=== PATIENT | male | born 1975 | race Native Hawaiian/Other Pacific Islander ===

== ENCOUNTER 2016-07-02 00:18 | Emergency (ER) | payer MEDICAID, OTHER ==
[~2016-07-02] VITALS: Ht 185.4 cm; Wt 235.9 kg
[2016-07-02] MEDS ORDERED: cloNIDine HCL 0.1 MG TAB PO ONE (00:45)
[2016-07-02 01:06] LABS: Basophils # (auto) 0.4 uL; Basophils % (auto) 2.5 % (0.0-2.0); DEFINITIVE VIEW TRANSMISSION; Eosinophils # (auto) 0 uL; Eosinophils % (auto) 0.1 % (0.0-7.0); Hematocrit 42.8 % (41.0-53.0); Hemoglobin 13.6 g/dL (13.5-17.5); Lymphocytes # (auto) 1.2 uL; Lymphocytes % (auto) 8.2 % (10.0-50.0); Mean Corpuscular Hemoglobin 27.1 pg (28.0-32.0); Mean Corpuscular Hgb Conc. 31.8 g/dL (32.0-36.0); Mean Corpuscular Volume 85.4 fL (80.0-100.0); Mean Platelet Volume 8.8 fL (7.4-10.4); Monocytes # (auto) 0.2 uL; Monocytes % (auto) 1.2 % (0.0-12.0); Neutrophils # (auto) 12.3 uL; Platelet Count (auto) 368 10^3/uL (140-450); Red Cell Distribution Width 13.1 % (11.6-16.0); SUSPECT VIEW TRANSMISSION; White Blood Cell 14.1 10^3/uL (4.4-10.8)
[2016-07-02 01:16] LABS: Albumin 3.8 g/dL (3.4-5.0); BUN/Creatinine Ratio 12.1; Calcium 8.6 mg/dL (8.5-10.1)
[2016-07-02 01:19] LABS: Bilirubin, Total 0.3 mg/dL (0.2-1.0); Total Protein 7.6 g/dL (6.4-8.2)
[2016-07-02 01:29] LABS: B-Type Natriuretic Peptide 13.19 pg/mL (0-100)
[2016-07-02 01:36] LABS: Temperature: 22.7 C (20.0-25.0)
[2016-07-02] MEDS ORDERED: ONDANSETRON HCL 4 MG/2 ML VIAL IV ONE (03:30)
[2016-07-02] MEDS ORDERED: HYDROmorphone HCL 2 MG/ML VL IV ONE ×2 (03:30→06:30)
[2016-07-02] MEDS ORDERED: metroNIDAZOLE 500 MG TAB PO ONE (06:30)
[2016-07-02] MEDS ORDERED: SODIUM CHLORIDE 0.9% 1,000 ML IV ONE (06:30)
[2016-07-02] MEDS ORDERED: cefTRIAXone 1GM/50ML D5W 50 ML IV ONE (06:30)
[2016-07-02 07:18] VITALS: BP 131/69
== END 2016-07-02 08:11 | disposition home or self-care (01) ==
LOC: EDBD 00:18 → ER 00:24
DX: K52.9 Noninfective gastroenteritis and colitis, unspecified (principal); K21.9 Gastro-esophageal reflux disease without esophagitis; I10 Essential (primary) hypertension; G40.909 Epilepsy, unspecified, not intractable, without status epilepticus; Z90.49 Acquired absence of other specified parts of digestive tract; Z88.1 Allergy status to other antibiotic agents
CPT/HCPCS: 36415; 80053; 83690; 83880; 84484; 85025; 93005; 96365; 96375; 96376; 99285; J0696; J1170; J2405; J7030

== ENCOUNTER 2016-07-03 09:15 | Inpatient (IN) | payer MEDICAID ==
[~2016-07-03] VITALS: Ht 185.4 cm; Wt 236.0 kg
[2016-07-03 10:42] LABS: Basophils # (auto) 0 uL; Basophils % (auto) 0.2 % (0.0-2.0); Eosinophils # (auto) 0 uL; Hematocrit 44.8 % (41.0-53.0); Hemoglobin 14.6 g/dL (13.5-17.5); Lymphocytes # (auto) 1.8 uL; Lymphocytes % (auto) 13.3 % (10.0-50.0); Mean Corpuscular Hemoglobin 27.5 pg (28.0-32.0); Mean Corpuscular Hgb Conc. 32.7 g/dL (32.0-36.0); Mean Corpuscular Volume 84.3 fL (80.0-100.0); Mean Platelet Volume 8.4 fL (7.4-10.4); Monocytes # (auto) 0.4 uL; Monocytes % (auto) 2.9 % (0.0-12.0); Neutrophils % (auto) 83.6 % (37.0-80.0); Platelet Count (auto) 377 10^3/uL (140-450); Red Cell Distribution Width 14.1 % (11.6-16.0); White Blood Cell 13.2 10^3/uL (4.4-10.8)
[2016-07-03 11:08] LABS: Albumin 4.3 g/dL (3.4-5.0); BUN/Creatinine Ratio 10.9; Bilirubin, Total 0.5 mg/dL (0.2-1.0); Calcium 9.1 mg/dL (8.5-10.1); Potassium 3.7 mmol/L (3.5-5.1); Total Protein 8.4 g/dL (6.4-8.2)
[2016-07-03] MEDS ORDERED: PANTOPRAZOLE SODIUM 40 MG/10 ML VIAL IV ONE (11:45)
[2016-07-03] MEDS ORDERED: ONDANSETRON HCL 4 MG/2 ML VIAL IV ONE (11:45)
[2016-07-03] MEDS ORDERED: SODIUM CHLORIDE 0.9% 500 ML IVB ONE (11:45)
[2016-07-03] MEDS ORDERED: metroNIDAZOLE 500MG/100ML 100 ML IV ONE (11:45)
[2016-07-03] MEDS ORDERED: HYDROmorphone HCL 2 MG/ML VL IV ONE (11:45)
[2016-07-03] MEDS ORDERED: LORazepam 0.5 MG TAB PO PRN (12:15)
[2016-07-03] MEDS ORDERED: ACETAMINOPHEN 500 MG TAB PO PRN (12:15)
[2016-07-03] MEDS ORDERED: cefTRIAXone 1GM/50ML D5W 50 ML IV ONE (12:15)
[2016-07-03] MEDS ORDERED: TEMAZEPAM 15 MG CAP PO PRN (12:15)
[2016-07-03] MEDS ORDERED: ENOXAPARIN SOD 40 MG/0.4 ML SYRINGE SC ONE (12:45)
[2016-07-03] MEDS: SODIUM CHLORIDE 0.9% 1,000 ML IV SCH ×2 (13:38→22:30)
[2016-07-03] MEDS: PROMETHAZINE HCL 25 MG/ML 1ML IV PRN ×4 (13:38→23:10)
[2016-07-03 13:47] LABS: Amylase 54 U/L (25-115)
[2016-07-03] MEDS: MORPHINE SULF INJ 2 MG/ML SYRINGE 1ML IV PRN ×3 (15:30→23:08)
[2016-07-03] MEDS: metroNIDAZOLE 500MG/100ML 100 ML IV SCH ×2 (19:28→23:13)
[2016-07-03] MEDS: HYDROcodone-ACET 5/325MG TAB PO PRN (20:14)
[2016-07-03 22:00] VITALS: BP 135/85
[2016-07-03] MEDS: FAMOTIDINE 20 MG TAB PO SCH (22:30)
[2016-07-04] MEDS ORDERED: FLUT50SP13 IN (03:11)
[2016-07-04] MEDS ORDERED: LISI40TA PO (03:11)
[2016-07-04] MEDS ORDERED: AMLO10TA2 PO (03:11)
[2016-07-04] MEDS ORDERED: DIC10C PO (03:11)
[2016-07-04] MEDS ORDERED: ZOLP10TA6 PO (03:11)
[2016-07-04] MEDS: MORPHINE SULF INJ 2 MG/ML SYRINGE 1ML IV PRN ×5 (03:38→20:48)
[2016-07-04] MEDS: PROMETHAZINE HCL 25 MG/ML 1ML IV PRN ×5 (03:38→20:48)
[2016-07-04] MEDS ORDERED: SUCR1TAB PO (03:49)
[2016-07-04] MEDS ORDERED: OMEP20TA44 PO (03:49)
[2016-07-04] MEDS: metroNIDAZOLE 500MG/100ML 100 ML IV SCH (05:35)
[2016-07-04 05:58] VITALS: BP 127/83
[2016-07-04 06:00] VITALS: BP 144/78
[2016-07-04 06:19] LABS: Basophils # (auto) 0.1 uL; Basophils % (auto) 0.6 % (0.0-2.0); Eosinophils # (auto) 0 uL; Eosinophils % (auto) 0.3 % (0.0-7.0); Hematocrit 38.3 % (41.0-53.0); Hemoglobin 12.6 g/dL (13.5-17.5); Lymphocytes # (auto) 2.6 uL; Lymphocytes % (auto) 21.4 % (10.0-50.0); Mean Corpuscular Hemoglobin 27.7 pg (28.0-32.0); Mean Corpuscular Hgb Conc. 32.8 g/dL (32.0-36.0); Mean Corpuscular Volume 84.4 fL (80.0-100.0); Mean Platelet Volume 8.5 fL (7.4-10.4); Monocytes % (auto) 8.5 % (0.0-12.0); Neutrophils # (auto) 8.4 uL; Neutrophils % (auto) 69.2 % (37.0-80.0); Platelet Count (auto) 326 10^3/uL (140-450); White Blood Cell 12.1 10^3/uL (4.4-10.8)
[2016-07-04 06:50] LABS: Cholesterol 162 mg/dL (<200); HDL Cholesterol 32 mg/dL (40-59); LDL Cholesterol 83 mg/dL (<100); Triglycerides 247 mg/dL (<150)
[2016-07-04] MEDS: SODIUM CHLORIDE 0.9% 1,000 ML IV SCH (08:14)
[2016-07-04 09:00] VITALS: BP 138/85
[2016-07-04] MEDS ORDERED: cefTRIAXone 1GM/50ML D5W 50 ML IV SCH (09:00)
[2016-07-04] MEDS: ENOXAPARIN SOD 40 MG/0.4 ML SYRINGE SC SCH (09:33)
[2016-07-04] MEDS: FAMOTIDINE 20 MG TAB PO SCH ×2 (09:33→21:28)
[2016-07-04] MEDS: HYDROcodone-ACET 5/325MG TAB PO PRN ×2 (09:42→19:05)
[2016-07-04] MEDS ORDERED: amLODIPine BESYLATE 5 MG TAB PO ONE (11:45)
[2016-07-04] MEDS ORDERED: LISINOPRIL 20 MG TAB PO ONE (11:45)
[2016-07-04 13:00] VITALS: BP 130/83
[2016-07-04] MEDS: LOPERAMIDE HCL 2 MG CAP PO PRN ×2 (16:37→23:26)
[2016-07-04 17:00] VITALS: BP 146/93
[2016-07-04 22:00] VITALS: BP 135/89
[2016-07-05] MEDS: MORPHINE SULF INJ 2 MG/ML SYRINGE 1ML IV PRN ×3 (00:35→09:17)
[2016-07-05] MEDS: PROMETHAZINE HCL 25 MG/ML 1ML IV PRN ×3 (00:35→09:17)
[2016-07-05 05:03] VITALS: BP 151/83
[2016-07-05 09:00] VITALS: BP 134/89
[2016-07-05 09:13] LABS: Basophils # (auto) 0.1 uL; Basophils % (auto) 0.9 % (0.0-2.0); Eosinophils # (auto) 0.3 uL; Eosinophils % (auto) 2.1 % (0.0-7.0); Hematocrit 40.7 % (41.0-53.0); Hemoglobin 13.4 g/dL (13.5-17.5); Lymphocytes # (auto) 3.7 uL; Lymphocytes % (auto) 25.8 % (10.0-50.0); Mean Corpuscular Hemoglobin 28.2 pg (28.0-32.0); Mean Corpuscular Hgb Conc. 32.9 g/dL (32.0-36.0); Mean Corpuscular Volume 85.8 fL (80.0-100.0); Mean Platelet Volume 8.5 fL (7.4-10.4); Monocytes % (auto) 6.8 % (0.0-12.0); Neutrophils # (auto) 9.3 uL; Neutrophils % (auto) 64.4 % (37.0-80.0); Platelet Count (auto) 321 10^3/uL (140-450); White Blood Cell 14.4 10^3/uL (4.4-10.8)
[2016-07-05 09:17] LABS: Albumin 3.7 g/dL (3.4-5.0); BUN/Creatinine Ratio 9.1; Bilirubin, Total 0.5 mg/dL (0.2-1.0); Calcium 8.7 mg/dL (8.5-10.1); Potassium 3.2 mmol/L (3.5-5.1); Total Protein 6.8 g/dL (6.4-8.2)
[2016-07-05] MEDS: ENOXAPARIN SOD 40 MG/0.4 ML SYRINGE SC SCH (09:18)
[2016-07-05] MEDS: FAMOTIDINE 20 MG TAB PO SCH (09:19)
[2016-07-05] MEDS ORDERED: LISINOPRIL 20 MG TAB PO SCH (10:00)
[2016-07-05] MEDS ORDERED: amLODIPine BESYLATE 5 MG TAB PO SCH (10:00)
[2016-07-05] MEDS ORDERED: METR500T PO ×2 (12:00)
[2016-07-05] MEDS ORDERED: CEPH-37 PO ×2 (12:00)
[2016-07-05] MEDS ORDERED: OMEP20CA5 PO ×2 (12:00)
[2016-07-05 12:25] VITALS: BP 134/89
[2016-07-05 13:05] VITALS: BP 134/89
== END 2016-07-05 13:06 | disposition home or self-care (01) | DRG 249 ==
LOC: ER 09:17 → OVERFLOW 09:18 → UNDOADMIN 09:18 → CENTRAL 20:26
PROVIDERS: ADMIT Internal Medicine; ATTEND Hospitalist
DX: K52.9 Noninfective gastroenteritis and colitis, unspecified (principal); I11.9 Hypertensive heart disease without heart failure; Z68.44 Body mass index [BMI] 60.0-69.9, adult; K21.9 Gastro-esophageal reflux disease without esophagitis; K57.92 Diverticulitis of intestine, part unspecified, without perforation or abscess without bleeding; E66.01 Morbid (severe) obesity due to excess calories; M54.30 Sciatica, unspecified side; G43.909 Migraine, unspecified, not intractable, without status migrainosus; Z88.1 Allergy status to other antibiotic agents; Z98.890 Other specified postprocedural states; Z82.3 Family history of stroke; Z90.49 Acquired absence of other specified parts of digestive tract; Z83.3 Family history of diabetes mellitus
CPT/HCPCS: 36415; 80053; 80061; 82150; 82378; 83690; 84484; 85025; 85048; 86141; 87086; 87493; 93005; 94761; 96365; 96367; 96372; 96375; C9113; J0696; J2405; J3490

== ENCOUNTER 2016-08-09 17:39 | Emergency (ER) | payer MEDICAID ==
[~2016-08-09] VITALS: Ht 185.4 cm; Wt 238.1 kg
[~2016-08-09 17:39] MED LIST: AMLO10TA2 PO; CEPH-37 PO; DIC10C PO; FLUT50SP13 IN; LISI40TA PO; METR500T PO; OMEP20CA5 PO; OMEP20TA44 PO; SUCR1TAB PO; ZOLP10TA6 PO
[2016-08-09 18:29] LABS: Basophils # (auto) 0 uL; Eosinophils # (auto) 0 uL; Eosinophils % (auto) 0.1 % (0.0-7.0); Hematocrit 42.5 % (41.0-53.0); Hemoglobin 13.5 g/dL (13.5-17.5); Lymphocytes # (auto) 1.4 uL; Lymphocytes % (auto) 9.1 % (10.0-50.0); Mean Corpuscular Hemoglobin 27.4 pg (28.0-32.0); Mean Corpuscular Hgb Conc. 31.7 g/dL (32.0-36.0); Mean Corpuscular Volume 86.4 fL (80.0-100.0); Mean Platelet Volume 8.8 fL (7.4-10.4); Monocytes # (auto) 0.1 uL; Monocytes % (auto) 0.5 % (0.0-12.0); Neutrophils # (auto) 13.5 uL; Neutrophils % (auto) 90.3 % (37.0-80.0); Platelet Count (auto) 413 10^3/uL (140-450); Red Cell Distribution Width 14.1 % (11.6-16.0)
[2016-08-09 19:04] LABS: BUN/Creatinine Ratio 13.6; Bilirubin, Total 0.4 mg/dL (0.2-1.0); Potassium 4.1 mmol/L (3.5-5.1); Total Protein 7.9 g/dL (6.4-8.2)
[2016-08-09] MEDS ORDERED: SODIUM CHLORIDE 0.9% 500 ML IV STA (19:56)
[2016-08-09] MEDS ORDERED: SODIUM CHLORIDE 0.9% 1,000 ML IV ONE (20:00)
[2016-08-09] MEDS ORDERED: HYDROmorphone HCL 2 MG/ML VL IV ONE ×2 (20:00→22:00)
[2016-08-09] MEDS ORDERED: ONDANSETRON HCL 4 MG/2 ML VIAL IV ONE (20:00)
[2016-08-10] MEDS ORDERED: PROMETHAZINE HCL 25 MG/ML 1ML IV ONE
[2016-08-10] MEDS ORDERED: metroNIDAZOLE 500MG/100ML 100 ML IV ONE
[2016-08-10] MEDS ORDERED: cefTRIAXone 1GM/50ML D5W 50 ML IV ONE
[2016-08-10 02:15] VITALS: BP 125/81
[2016-08-11] MEDS ORDERED: HYDR50TA69 PO (05:24)
[2016-08-11] MEDS ORDERED: IBU100LQ PO (05:24)
[2016-08-11] MEDS ORDERED: PROM1SUP4 PO (05:24)
[2016-08-11] MEDS ORDERED: TRAM-297 PO (05:24)
[2016-08-11] MEDS ORDERED: BUTA50TA PO (05:24)
== END 2016-08-10 00:26 | disposition home or self-care (01) ==
LOC: ER 17:45
DX: K52.9 Noninfective gastroenteritis and colitis, unspecified (principal); D72.829 Elevated white blood cell count, unspecified; R07.9 Chest pain, unspecified; K21.9 Gastro-esophageal reflux disease without esophagitis; I10 Essential (primary) hypertension; F12.10 Cannabis abuse, uncomplicated; Z88.1 Allergy status to other antibiotic agents; Z79.899 Other long term (current) drug therapy
CPT/HCPCS: 36415; 71010; 74000; 80053; 83690; 84484; 85025; 93005; 96361; 96365; 96367; 96375; 96376; 99285; J0696; J1170; J2405; J2550; J3490; J7030

== ENCOUNTER 2016-08-10 15:51 | Inpatient (IN) | payer MEDICAID ==
[~2016-08-10] VITALS: Ht 185.4 cm; Wt 235.0 kg
[2016-08-10 16:41] LABS: Basophils # (auto) 0.1 uL; Basophils % (auto) 0.5 % (0.0-2.0); Eosinophils # (auto) 0 uL; Eosinophils % (auto) 0.2 % (0.0-7.0); Hematocrit 42.2 % (41.0-53.0); Hemoglobin 13.4 g/dL (13.5-17.5); Lymphocytes # (auto) 2.2 uL; Lymphocytes % (auto) 14.8 % (10.0-50.0); Mean Corpuscular Hemoglobin 27.1 pg (28.0-32.0); Mean Corpuscular Hgb Conc. 31.8 g/dL (32.0-36.0); Mean Corpuscular Volume 85.3 fL (80.0-100.0); Mean Platelet Volume 8.6 fL (7.4-10.4); Monocytes # (auto) 0.7 uL; Neutrophils # (auto) 11.6 uL; Neutrophils % (auto) 79.5 % (37.0-80.0); Platelet Count (auto) 431 10^3/uL (140-450); White Blood Cell 14.6 10^3/uL (4.4-10.8)
[2016-08-10 16:55] LABS: Albumin 3.9 g/dL (3.4-5.0); BUN/Creatinine Ratio 11.3; Calcium 8.8 mg/dL (8.5-10.1); Magnesium 2.4 mg/dL (1.6-2.6); Potassium 3.4 mmol/L (3.5-5.1)
[2016-08-10 16:58] LABS: Bilirubin, Total 0.3 mg/dL (0.2-1.0); Total Protein 7.7 g/dL (6.4-8.2)
[2016-08-10] MEDS ORDERED: ONDANSETRON HCL 4 MG/2 ML VIAL IV ONE (20:30)
[2016-08-10] MEDS ORDERED: HYDROmorphone HCL 2 MG/ML VL IV ONE ×2 (20:30→22:00)
[2016-08-10] MEDS ORDERED: PROMETHAZINE HCL 25 MG/ML 1ML IV ONE (22:00)
[2016-08-10] MEDS ORDERED: diphenhdrAMINE HCL 50 MG/1 ML VL IV ONE (22:00)
[2016-08-11] VITALS (8 sets, daily range): BP systolic 102–161; BP diastolic 64–85
[2016-08-11] MEDS ORDERED: PANTOPRAZOLE SODIUM 40 MG/10 ML VIAL IV ONE (01:45)
[2016-08-11] MEDS ORDERED: POTASSIUM CHL 20 Meq TABLET PO ONE (01:45)
[2016-08-11] MEDS ORDERED: ACETAMINOPHEN 325 MG TAB PO PRN (01:45)
[2016-08-11] MEDS: MORPHINE SULF INJ 2 MG/ML SYRINGE 1ML IV PRN ×5 (03:08→21:50)
[2016-08-11] MEDS ORDERED: BUTA50TA PO ×2 (05:24)
[2016-08-11] MEDS ORDERED: HYDR50TA69 PO ×2 (05:24)
[2016-08-11] MEDS ORDERED: IBU100LQ PO ×2 (05:24)
[2016-08-11] MEDS ORDERED: PROM1SUP4 PO ×2 (05:24)
[2016-08-11] MEDS ORDERED: TRAM-297 PO ×2 (05:24)
[2016-08-11] MEDS ORDERED: SUCRALFATE 1 GM TAB PO SCH (06:00)
[2016-08-11] MEDS: ONDANSETRON HCL 4 MG/2 ML VIAL IV PRN ×2 (07:38→11:40)
[2016-08-11] MEDS: amLODIPine BESYLATE 5 MG TAB PO SCH (09:27)
[2016-08-11] MEDS: HYDROcodone-ACET 5/325MG TAB PO PRN ×2 (09:33→19:07)
[2016-08-11] MEDS ORDERED: LISINOPRIL 20 MG TAB PO SCH (10:00)
[2016-08-11] MEDS ORDERED: ENOXAPARIN SOD 40 MG/0.4 ML SYRINGE SC SCH (10:00)
[2016-08-11] MEDS ORDERED: PANTOPRAZOLE SODIUM 40 MG/10 ML VIAL IV SCH (10:00)
[2016-08-11] MEDS ORDERED: INFLUENZA QUAD 2016-2017 0.5 ML SYRG IM ONE (10:00)
[2016-08-11] MEDS ORDERED: MORPHINE SULF INJ 2 MG/ML SYRINGE 1ML IV ONE ×2 (10:15)
[2016-08-11] MEDS ORDERED: cefTRIAXone 1GM/50ML D5W 50 ML IV ONE (10:15)
[2016-08-11] MEDS: metroNIDAZOLE 500MG/100ML 100 ML IV SCH ×2 (11:40→17:51)
[2016-08-11] MEDS: PROMETHAZINE HCL 25 MG/ML 1ML IV PRN ×2 (15:46→21:50)
[2016-08-11] MEDS: DIPHENOXYLATE W/ATROPINE 2.5 MG TAB PO PRN (19:07)
[2016-08-11] MEDS ORDERED: PANTOPRAZOLE 40 MG TAB PO SCH (22:00)
[2016-08-12] MEDS: metroNIDAZOLE 500MG/100ML 100 ML IV SCH ×5 (01:10→23:50)
[2016-08-12] MEDS: MORPHINE SULFATE 4 MG/ML SYRG IV PRN ×2 (01:19→06:10)
[2016-08-12 05:00] VITALS: BP 156/96
[2016-08-12] MEDS: PROMETHAZINE HCL 25 MG/ML 1ML IV PRN ×2 (06:11→12:22)
[2016-08-12 06:37] LABS: Basophils # (auto) 0 uL; Basophils % (auto) 0.2 % (0.0-2.0); Eosinophils # (auto) 0.1 uL; Eosinophils % (auto) 0.4 % (0.0-7.0); Hematocrit 40.3 % (41.0-53.0); Hemoglobin 12.9 g/dL (13.5-17.5); Lymphocytes # (auto) 2.3 uL; Lymphocytes % (auto) 18.5 % (10.0-50.0); Mean Corpuscular Hemoglobin 27.6 pg (28.0-32.0); Mean Corpuscular Volume 86.2 fL (80.0-100.0); Mean Platelet Volume 8.7 fL (7.4-10.4); Monocytes # (auto) 0.5 uL; Monocytes % (auto) 4.2 % (0.0-12.0); Neutrophils # (auto) 9.7 uL; Neutrophils % (auto) 76.7 % (37.0-80.0); Platelet Count (auto) 335 10^3/uL (140-450); Red Cell Distribution Width 13.6 % (11.6-16.0); White Blood Cell 12.6 10^3/uL (4.4-10.8)
[2016-08-12 07:16] LABS: Albumin 3.8 g/dL (3.4-5.0); BUN/Creatinine Ratio 8.6; Bilirubin, Total 0.4 mg/dL (0.2-1.0); Calcium 8.7 mg/dL (8.5-10.1); Potassium 3.4 mmol/L (3.5-5.1); Total Protein 7.4 g/dL (6.4-8.2)
[2016-08-12 08:00] VITALS: BP 154/94
[2016-08-12] MEDS: SOD CHL 0.9%/ KCL 20MEQ 1,000 ML IV SCH ×2 (09:45→21:46)
[2016-08-12] MEDS: cefTRIAXone 1GM/50ML D5W 50 ML IV SCH (10:15)
[2016-08-12] MEDS: PANTOPRAZOLE SODIUM 40 MG/10 ML VIAL IV SCH (10:15)
[2016-08-12] MEDS: HYDROmorphone HCL 2 MG/ML VL IV PRN ×4 (10:16→23:43)
[2016-08-12] MEDS: LISINOPRIL 20 MG TAB PO SCH (10:17)
[2016-08-12] MEDS: amLODIPine BESYLATE 5 MG TAB PO SCH (10:17)
[2016-08-12 10:40] LABS: Amylase 28 U/L (25-115)
[2016-08-12 12:00] VITALS: BP 122/87
[2016-08-12] MEDS: DIPHENOXYLATE W/ATROPINE 2.5 MG TAB PO PRN (12:21)
[2016-08-12 17:06] VITALS: BP 153/93
[2016-08-12 20:00] VITALS: BP 137/80
[2016-08-12 21:49] VITALS: BP 137/68
[2016-08-12] MEDS: ZOLPIDEM TARTRATE 5 MG TAB PO PRN (23:44)
[2016-08-13] VITALS (7 sets, daily range): BP systolic 137–164; BP diastolic 79–92
[2016-08-13] MEDS: HYDROmorphone HCL 2 MG/ML VL IV PRN ×5 (04:39→20:41)
[2016-08-13] MEDS: SOD CHL 0.9%/ KCL 20MEQ 1,000 ML IV SCH ×2 (05:15→16:44)
[2016-08-13] MEDS: metroNIDAZOLE 500MG/100ML 100 ML IV SCH ×3 (05:20→18:42)
[2016-08-13] MEDS: PANTOPRAZOLE SODIUM 40 MG/10 ML VIAL IV SCH (08:44)
[2016-08-13] MEDS: amLODIPine BESYLATE 5 MG TAB PO SCH (08:49)
[2016-08-13] MEDS: LISINOPRIL 20 MG TAB PO SCH (08:49)
[2016-08-13] MEDS: cefTRIAXone 1GM/50ML D5W 50 ML IV SCH (08:50)
[2016-08-13] MEDS ORDERED: POTASSIUM CHLORIDE 40 MEQ, LIDOCAINE 1% (LOCAL ANESTH.) 4 ML in SODIUM CHL 0.9% 250 ML IV ONE (10:00)
[2016-08-13] MEDS ORDERED: SUMAtriptan SUCCINATE 25 MG TAB PO ONE (10:00)
[2016-08-13] MEDS: PROMETHAZINE HCL 25 MG/ML 1ML IV PRN ×2 (10:06→16:43)
[2016-08-13 11:40] LABS: INR 1.03 (0.9-1.15); Partial Thromboplastin Time 21.6 sec (22.64-33.71); Prothrombin Time 10.6 sec (9.37-12.3)
[2016-08-13 11:55] LABS: Calcium 8.2 mg/dL (8.5-10.1); Potassium 3.3 mmol/L (3.5-5.1)
[2016-08-13 12:04] LABS: Basophils # (auto) 0.1 uL; Basophils % (auto) 0.6 % (0.0-2.0); Eosinophils # (auto) 0.2 uL; Eosinophils % (auto) 2.1 % (0.0-7.0); Hematocrit 40.4 % (41.0-53.0); Hemoglobin 12.7 g/dL (13.5-17.5); Lymphocytes % (auto) 17.5 % (10.0-50.0); Mean Corpuscular Hemoglobin 27.1 pg (28.0-32.0); Mean Corpuscular Hgb Conc. 31.5 g/dL (32.0-36.0); Mean Platelet Volume 9.1 fL (7.4-10.4); Monocytes # (auto) 0.7 uL; Monocytes % (auto) 6.3 % (0.0-12.0); Neutrophils # (auto) 8.4 uL; Neutrophils % (auto) 73.5 % (37.0-80.0); Platelet Count (auto) 347 10^3/uL (140-450); Red Cell Distribution Width 13.8 % (11.6-16.0); White Blood Cell 11.4 10^3/uL (4.4-10.8)
[2016-08-14] MEDS: PROMETHAZINE HCL 25 MG/ML 1ML IV PRN ×3 (00:38→10:34)
[2016-08-14] MEDS: metroNIDAZOLE 500MG/100ML 100 ML IV SCH ×2 (00:38→06:39)
[2016-08-14] MEDS: HYDROmorphone HCL 2 MG/ML VL IV PRN ×5 (00:39→13:22)
[2016-08-14] MEDS: ZOLPIDEM TARTRATE 5 MG TAB PO PRN (00:39)
[2016-08-14] MEDS: SOD CHL 0.9%/ KCL 20MEQ 1,000 ML IV SCH (01:45)
[2016-08-14 04:30] VITALS: BP 141/94
[2016-08-14 05:12] LABS: Basophils # (auto) 0.1 uL; Basophils % (auto) 0.6 % (0.0-2.0); Eosinophils # (auto) 0.4 uL; Eosinophils % (auto) 3.2 % (0.0-7.0); Hemoglobin 12.8 g/dL (13.5-17.5); Lymphocytes # (auto) 2.4 uL; Lymphocytes % (auto) 19.9 % (10.0-50.0); Mean Corpuscular Hgb Conc. 31.2 g/dL (32.0-36.0); Mean Corpuscular Volume 86.5 fL (80.0-100.0); Mean Platelet Volume 8.9 fL (7.4-10.4); Monocytes # (auto) 0.7 uL; Monocytes % (auto) 6.2 % (0.0-12.0); Neutrophils # (auto) 8.4 uL; Neutrophils % (auto) 70.1 % (37.0-80.0); Platelet Count (auto) 333 10^3/uL (140-450); Red Cell Distribution Width 13.6 % (11.6-16.0)
[2016-08-14 05:42] LABS: Calcium 8.3 mg/dL (8.5-10.1); Potassium 3.2 mmol/L (3.5-5.1)
[2016-08-14 05:44] LABS: BUN/Creatinine Ratio 7.2
[2016-08-14 09:05] VITALS: BP 146/79
[2016-08-14] MEDS: cefTRIAXone 1GM/50ML D5W 50 ML IV SCH (11:16)
[2016-08-14] MEDS: PANTOPRAZOLE SODIUM 40 MG/10 ML VIAL IV SCH (11:18)
[2016-08-14] MEDS: amLODIPine BESYLATE 5 MG TAB PO SCH (11:19)
[2016-08-14] MEDS: LISINOPRIL 20 MG TAB PO SCH (11:20)
[2016-08-15] MEDS ORDERED: NITROGLYCERIN 0.4 MG SL TAB SL PRN (23:00)
[2016-08-15] MEDS ORDERED: MORPHINE SULF INJ 2 MG/ML SYRINGE 1ML IV PRN (23:00)
[2016-08-16 00:02] LABS: Basophils # (auto) 0.1 uL; Basophils % (auto) 0.7 % (0.0-2.0); Eosinophils # (auto) 0.3 uL; Eosinophils % (auto) 2.9 % (0.0-7.0); Hematocrit 40.4 % (41.0-53.0); Hemoglobin 12.6 g/dL (13.5-17.5); Lymphocytes # (auto) 2.3 uL; Lymphocytes % (auto) 20.1 % (10.0-50.0); Mean Corpuscular Hemoglobin 27.1 pg (28.0-32.0); Mean Corpuscular Hgb Conc. 31.2 g/dL (32.0-36.0); Mean Corpuscular Volume 86.9 fL (80.0-100.0); Mean Platelet Volume 8.9 fL (7.4-10.4); Monocytes # (auto) 0.6 uL; Monocytes % (auto) 5.2 % (0.0-12.0); Neutrophils # (auto) 8.2 uL; Neutrophils % (auto) 71.1 % (37.0-80.0); Platelet Count (auto) 332 10^3/uL (140-450); White Blood Cell 11.5 10^3/uL (4.4-10.8)
[2016-08-16 00:17] LABS: Albumin 3.1 g/dL (3.4-5.0); Anion Gap 6 (5-15); Aspartate Aminotransferase 36 U/L (15-37); BUN/Creatinine Ratio 6.3; Blood Urea Nitrogen 6 mg/dL (7-18); Calcium 8.3 mg/dL (8.5-10.1); Carbon Dioxide 27 mmol/L (21-32); Chloride 106 mmol/L (98-107); GFR African American 114 mL/min; GFR Non-African American 94 mL/min; Glucose 106 mg/dL (74-106); Potassium 3.8 mmol/L (3.5-5.1); Sodium 139 mmol/L (136-145)
[2016-08-16 00:22] LABS: Alkaline Phosphatase 83 U/L (45-117); Bilirubin, Total 0.4 mg/dL (0.2-1.0); Total Protein 6.8 g/dL (6.4-8.2)
== END 2016-08-14 14:16 | disposition short-term general hospital (02) | DRG 720 ==
LOC: ER 15:55 → OVERFLOW 15:56 → CENTRAL 08-11 03:26 → TELE-CENTR 08-11 16:25
PROVIDERS: ADMIT Nurse Practitioner; ATTEND Internal Medicine
DX: A41.9 Sepsis, unspecified organism (principal); K57.92 Diverticulitis of intestine, part unspecified, without perforation or abscess without bleeding; I10 Essential (primary) hypertension; E66.01 Morbid (severe) obesity due to excess calories; K52.9 Noninfective gastroenteritis and colitis, unspecified; E87.6 Hypokalemia; F12.90 Cannabis use, unspecified, uncomplicated; K21.9 Gastro-esophageal reflux disease without esophagitis; Z82.3 Family history of stroke; Z82.49 Family history of ischemic heart disease and other diseases of the circulatory system; Z83.3 Family history of diabetes mellitus; Z90.49 Acquired absence of other specified parts of digestive tract; Z68.44 Body mass index [BMI] 60.0-69.9, adult; Z88.1 Allergy status to other antibiotic agents; Z83.2 Family history of diseases of the blood and blood-forming organs and certain disorders involving the immune mechanism
CPT/HCPCS: 36415; 72040; 73020; 73120; 80048; 80053; 82150; 83690; 83735; 84484; 85025; 85610; 85730; 87493; 93005; 96374; 96375; 96376; C9113; J0696; J2001; J2405; J3490

== ENCOUNTER 2016-08-15 20:40 | Inpatient (IN) | payer MEDICAID ==
[~2016-08-15] VITALS: Ht 185.4 cm; Wt 230.3 kg
[~2016-08-15 20:40] MED LIST changes: +BUTA50TA PO; +HYDR50TA69 PO; +IBU100LQ PO; +PROM1SUP4 PO; +TRAM-297 PO
[2016-08-15 22:58] VITALS: BP 155/93
[2016-08-15] MEDS ORDERED: NITROGLYCERIN 0.4 MG SL TAB SL PRN (23:30)
[2016-08-16] MEDS: HYDROmorphone HCL 2 MG/ML VL IV PRN ×5 (01:20→20:49)
[2016-08-16 05:25] VITALS: BP 132/88
[2016-08-16 08:00] VITALS: BP 132/88
[2016-08-16] MEDS: cefTRIAXone 1GM/50ML D5W 50 ML IV SCH (08:38)
[2016-08-16 09:00] VITALS: BP 152/85
[2016-08-16] MEDS: LISINOPRIL 20 MG TAB PO SCH (10:52)
[2016-08-16] MEDS: amLODIPine BESYLATE 5 MG TAB PO SCH (10:52)
[2016-08-16] MEDS: PANTOPRAZOLE SODIUM 40 MG/10 ML VIAL IV SCH (10:53)
[2016-08-16] MEDS: ENOXAPARIN SOD 40 MG/0.4 ML SYRINGE SC SCH (10:53)
[2016-08-16] MEDS: PROMETHAZINE HCL 25 MG/ML 1ML IV PRN ×2 (12:20→20:49)
[2016-08-16] MEDS: MORPHINE SULF INJ 2 MG/ML SYRINGE 1ML IV PRN (12:30)
[2016-08-16] MEDS ORDERED: SUMAtriptan SUCCINATE 25 MG TAB PO PRN (16:45)
[2016-08-16 17:00] VITALS: BP 156/95
[2016-08-16 20:00] VITALS: BP 157/77
[2016-08-16 22:00] VITALS: BP 157/77
[2016-08-16] MEDS: ZOLPIDEM TARTRATE 5 MG TAB PO PRN (22:12)
[2016-08-17] VITALS (7 sets, daily range): BP systolic 148–160; BP diastolic 85–99
[2016-08-17] MEDS: MORPHINE SULF INJ 2 MG/ML SYRINGE 1ML IV PRN ×4 (00:18→21:59)
[2016-08-17] MEDS: HYDROmorphone HCL 2 MG/ML VL IV PRN ×4 (02:13→18:56)
[2016-08-17] MEDS: PROMETHAZINE HCL 25 MG/ML 1ML IV PRN ×3 (02:13→13:40)
[2016-08-17] MEDS: cefTRIAXone 1GM/50ML D5W 50 ML IV SCH (08:15)
[2016-08-17 08:53] LABS: Albumin 3.1 g/dL (3.4-5.0); BUN/Creatinine Ratio 7.4; Calcium 8.3 mg/dL (8.5-10.1); Potassium 3.5 mmol/L (3.5-5.1)
[2016-08-17 08:56] LABS: Bilirubin, Total 0.3 mg/dL (0.2-1.0); Total Protein 6.2 g/dL (6.4-8.2)
[2016-08-17] MEDS: LISINOPRIL 20 MG TAB PO SCH (09:50)
[2016-08-17] MEDS: ENOXAPARIN SOD 40 MG/0.4 ML SYRINGE SC SCH (09:51)
[2016-08-17] MEDS: amLODIPine BESYLATE 5 MG TAB PO SCH (09:51)
[2016-08-17] MEDS: PANTOPRAZOLE SODIUM 40 MG/10 ML VIAL IV SCH (09:51)
[2016-08-17] MEDS: ZOLPIDEM TARTRATE 5 MG TAB PO PRN (23:07)
[2016-08-18] MEDS: ONDANSETRON HCL 4 MG/2 ML VIAL IV PRN ×3 (00:46→20:17)
[2016-08-18] MEDS: HYDROmorphone HCL 2 MG/ML VL IV PRN ×3 (00:47→10:15)
[2016-08-18 05:00] VITALS: BP 159/93
[2016-08-18] MEDS: MORPHINE SULF INJ 2 MG/ML SYRINGE 1ML IV PRN (05:19)
[2016-08-18 09:00] VITALS: BP 141/88
[2016-08-18] MEDS: cefTRIAXone 1GM/50ML D5W 50 ML IV SCH (09:21)
[2016-08-18] MEDS: ENOXAPARIN SOD 40 MG/0.4 ML SYRINGE SC SCH (09:24)
[2016-08-18] MEDS: PANTOPRAZOLE SODIUM 40 MG/10 ML VIAL IV SCH (09:24)
[2016-08-18] MEDS: amLODIPine BESYLATE 5 MG TAB PO SCH (09:26)
[2016-08-18] MEDS: LISINOPRIL 20 MG TAB PO SCH (09:26)
[2016-08-18] MEDS ORDERED: LACTULOSE 20Gm/30ML SOLN PO ONE (11:00)
[2016-08-18] MEDS ORDERED: LACTULOSE 20Gm/30ML SOLN PO PRN (11:00)
[2016-08-18] MEDS ORDERED: PANTOPRAZOLE 40 MG TAB PO ONE (11:15)
[2016-08-18] MEDS ORDERED: LISINOPRIL 20 MG TAB PO ONE (11:15)
[2016-08-18 12:23] LABS: Basophils # (auto) 0.1 uL; Basophils % (auto) 0.6 % (0.0-2.0); Eosinophils # (auto) 0.6 uL; Eosinophils % (auto) 7.2 % (0.0-7.0); Lymphocytes # (auto) 2.4 uL; Lymphocytes % (auto) 28.8 % (10.0-50.0); Mean Corpuscular Hemoglobin 28.4 pg (28.0-32.0); Mean Corpuscular Hgb Conc. 33.3 g/dL (32.0-36.0); Mean Corpuscular Volume 85.4 fL (80.0-100.0); Mean Platelet Volume 9.1 fL (7.4-10.4); Monocytes # (auto) 0.7 uL; Monocytes % (auto) 7.7 % (0.0-12.0); Neutrophils # (auto) 4.7 uL; Neutrophils % (auto) 55.7 % (37.0-80.0); Platelet Count (auto) 295 10^3/uL (140-450); Red Cell Distribution Width 13.8 % (11.6-16.0); White Blood Cell 8.5 10^3/uL (4.4-10.8)
[2016-08-18 12:56] LABS: BUN/Creatinine Ratio 10.6; Calcium 8.4 mg/dL (8.5-10.1); Potassium 3.4 mmol/L (3.5-5.1)
[2016-08-18 13:00] VITALS: BP 158/103
[2016-08-18] MEDS: metroNIDAZOLE 500 MG TAB PO SCH ×2 (13:35→21:15)
[2016-08-18] MEDS: traMADol HCL 50 MG TAB PO PRN ×2 (13:35→21:16)
[2016-08-18] MEDS: HYDROcodone-ACET 10/325MG TAB PO PRN ×2 (16:00→20:17)
[2016-08-18 17:00] VITALS: BP 147/93
[2016-08-18] MEDS: ZOLPIDEM TARTRATE 5 MG TAB PO PRN (21:16)
[2016-08-18 22:00] VITALS: BP 136/79
[2016-08-19] MEDS: HYDROcodone-ACET 10/325MG TAB PO PRN ×3 (03:01→12:24)
[2016-08-19] MEDS: ONDANSETRON HCL 4 MG/2 ML VIAL IV PRN ×3 (03:11→12:59)
[2016-08-19 05:00] VITALS: BP 133/99
[2016-08-19] MEDS: traMADol HCL 50 MG TAB PO PRN (05:13)
[2016-08-19] MEDS: metroNIDAZOLE 500 MG TAB PO SCH (05:13)
[2016-08-19] MEDS: cefTRIAXone 1GM/50ML D5W 50 ML IV SCH (08:32)
[2016-08-19] MEDS: amLODIPine BESYLATE 5 MG TAB PO SCH (08:36)
[2016-08-19] MEDS ORDERED: PANT40T PO ×2 (08:45)
[2016-08-19] MEDS ORDERED: MET500T PO ×2 (08:45)
[2016-08-19] MEDS ORDERED: AMOX-263 PO ×2 (08:45)
[2016-08-19] MEDS ORDERED: LACT10SO PO ×2 (08:45)
[2016-08-19] MEDS: ENOXAPARIN SOD 40 MG/0.4 ML SYRINGE SC SCH (08:58)
[2016-08-19] MEDS ORDERED: LISINOPRIL 20 MG TAB PO SCH (10:00)
[2016-08-19] MEDS ORDERED: PANTOPRAZOLE 40 MG TAB PO SCH (10:00)
[2016-08-19 14:30] VITALS: BP 152/92
== END 2016-08-19 14:30 | disposition home or self-care (01) | DRG 244 ==
LOC: CENTRAL 20:40
PROVIDERS: ADMIT Internal Medicine; ATTEND Internal Medicine
DX: K57.92 Diverticulitis of intestine, part unspecified, without perforation or abscess without bleeding (principal); Z68.44 Body mass index [BMI] 60.0-69.9, adult; I10 Essential (primary) hypertension; K21.9 Gastro-esophageal reflux disease without esophagitis; F12.90 Cannabis use, unspecified, uncomplicated; E66.01 Morbid (severe) obesity due to excess calories; Z82.3 Family history of stroke; Z82.49 Family history of ischemic heart disease and other diseases of the circulatory system; Z83.3 Family history of diabetes mellitus; I25.2 Old myocardial infarction; Z90.49 Acquired absence of other specified parts of digestive tract; Z87.19 Personal history of other diseases of the digestive system; Z88.1 Allergy status to other antibiotic agents
CPT/HCPCS: 36415; 80048; 80053; 85025; 87081; 93005; C9113; J0696; J2405